=== PATIENT | female | born 1995 | race Caucasian/White ===

== ENCOUNTER 2018-12-02 19:35 | Outpatient (CLI) | payer OTHER, SELFPAY ==
[~2018-12-02] VITALS: Ht 167.6 cm; Wt 75.3 kg
--- NOTE | 2018-12-02 21:05 | IPNPDOC ---
Text Note Date of Service The patient was seen on 12/02/18. NOTE 23 yo at 38+6 weeks gestation presents to L&D with the complaint of contractions that have been worsening throughout the day. She describes them as occurring every 7-15 minutes. She denies any vaginal bleeding or leakage of fluid. She endorses excellent movement. Chaperoned by L&D RN Vitals - VSS, afebrile, normotensive, non tachycardic General - AAOX3, sitting up in bed, NAD Abdomen - Gravid uterus, no fundal tenderness Cervix - 1/50/-3, posterior FHT tracing - NST reactive with moderate variability, +accels, no decels. Ctx sporadic on toco. Patient not in active labor. status reassuring. She has an appointment scheduled for [id number]. Return to care sooner for any urgent concerns. All questions answered. DO ISIDRO Sylvester CHRISTOPHER J. DO Dec 02, 2018 21:05
== END 2018-12-02 21:15 | disposition home or self-care (01) ==
LOC: M LDO 19:35
PROVIDERS: ATTEND Obstetrics & Gynecology
DX: O26.893 Other specified pregnancy related conditions, third trimester (principal); R10.30 Lower abdominal pain, unspecified; O47.1 False labor at or after 37 completed weeks of gestation; Z3A.38 38 weeks gestation of pregnancy
CPT/HCPCS: 59025; G0378; G0463

== ENCOUNTER 2018-12-03 10:26 | Inpatient (IN) | payer OTHER, SELFPAY ==
[2018-12-03] VITALS (14 sets, daily range): BP systolic 105–136; BP diastolic 64–86
[~2018-12-03] VITALS: Ht 167.6 cm; Wt 75.4 kg
[2018-12-03] MEDS ORDERED: PENICILLIN G POTASSIUM IV 5 MU in D5W MINI-BAG PLUS 100 ML IV STA (13:59)
[2018-12-03] MEDS ORDERED: LACTATED RINGER'S 1000 ML IV ONE (14:00)
[2018-12-03 14:48] LABS: HEMATOCRIT 35.3 % (36.0-47.0); HEMOGLOBIN 11.9 g/dl (12.0-15.5); MEAN CORPUSCULAR HEMOGLOBIN 34.2 pg (27.0-33.0); MEAN CORPUSCULAR HGB CONC 33.7 g/dl (32.0-36.5); MEAN CORPUSCULAR VOLUME 101.4 fl (80.0-96.0); PLATELET COUNT, AUTOMATED 170 10^3/uL (150-450); RED BLOOD COUNT 3.48 10^6/uL (4.00-5.40); WHITE BLOOD COUNT 8.8 10^3/uL (4.0-10.0)
[2018-12-03] MEDS: LR 1,000 ML IV SCH ×2 (14:56→18:25)
[2018-12-03] MEDS ORDERED: FENTANYL 2MCG/ML ROPIVACAINE 0.2% IN 0.9% NACL 100ML IVBAG As Ordered ONE (17:14)
--- NOTE | 2018-12-03 17:44 | HPE ---
DATE OF ADMISSION: 12/03/2018 This lady is a 23-year-old 1, para 0. Last menstrual period (LMP) is 02/24/2018, estimated date of confinement (EDC) 12/10/2018 at 39+ weeks of gestation. Contractions for the last 12 hours. No vaginal loss or bleeding. Risk factors are she is GBS positive, Rh negative, HSV oral positive, anemia, STD test of cure was negative, and abnormal Pap smear. Labs are O negative, HIV negative, hepatitis negative, RPR negative, rubella immune, Varicella immune. Pap shows low-grade squamous intraepithelial lesion (LGSIL). Urine was positive. Gonorrhea was negative. Chlamydia was positive. Test of cure was negative. One-hour glucose was elevated to 143. A 3-hour GTT 72/95/100/105. GBS is positive. She appears to be uncomfortable. Symphysis fundus height is 39, vertex, 100 percent effaced -3 station, 3-4 cm, bulging membranes. Blood pressure 108/66, respirations are 16, pulse of 90, temperature 98.6. Urine is 1005, pH 6. Te rest is negative. She has a category 1 strip. Normocephalic, atraumatic. Neck: Full range of motions. Pupils equal and reactive to light. Distal pulses symmetric. No evidence of deep vein thrombosis (DVT), pulmonary embolism (PE), or superficial pulled phlebitis. Chest is clear bilaterally to bases. No wheezes or rhonchi. Abdomen soft, 4-quadrant bowel sounds. Symphysis fundus height is appropriate. She has no rashes, lesions, or pruritus. She does have tattoos. No arthralgia, myalgia, complaint of joint pain. No complaint cough, wheezes, shortness of breath, or dyspnea on exertion. Not bleeding. Neurologic complete. No frequency. No nausea, vomiting, diarrhea, or constipation. No diabetic care. Her 3-hour GTT was normal. GYNECOLOGIC HISTORY: She has had a past history of chlamydia positive, test of cure negative. HSV oral was positive, and her Pap smear showed LGSIL. PAST MEDICAL AND SURGICAL: Unremarkable. FAMILY HISTORY: Noncontributory. SOCIAL HISTORY: She does not smoke, drink, abuse drugs. She is . No domestic violence. [employer]-duty soldier. We discussed the consent for vaginal delivery, which is delivery through the vagina with possible assist of forceps or vacuum devices if needed for maternal or indications, forceps, vacuums, or devices that can assist with vaginal delivery when normal pushing efforts cannot achieve delivery on their own or when delivery is needed in emergency for baby's wellbeing. Medications may be required to induce or augment labor in order to achieve vaginal delivery, and episiotomy may be required to help baby deliver vaginally. You may also require repair of any lacerations or tears of the vagina or vulva that are caused by delivery. In some cases emergencies can arise that require emergency delivery so quickly that there may not be enough time to stop and complete consent forms for the section. If this occurs, the provider will discuss the reason for the section before proceeding for surgery. section is delivery through the incision on your abdomen. In some situations section may be safer to the mother baby than continuing on when clinically indicated. Also vaginal delivery includes, but not limited to, bleeding, infections, injury to the vagina, pelvic structures, injury to the baby, damage to the uterus, reaction to anesthesia, uterine rupture, risk of hysterectomy for life-threatening bleeding, or even . Medications used to induce or augment labor may increase risk of infection, uterine tachysystole, uterine rupture, heart rate abnormalities, need for emergency delivery, and possible hysterectomy and hemorrhage. Additional risks with use of forceps or vacuum include perineal vaginal lacerations, risk of urinary or bowel incontinence, risk of baby being bruise, scratches, hematomas, intracranial bleed. The patient expressed understanding of all these issues. The plan of care discussed was to do antibiotic coverage for GBS positive, epidural as needed for pain management, artificial rupture of membranes (AROM) at the appropriate interval. The patient and has expressed understanding, and we are safe to proceed.
[2018-12-03] MEDS ORDERED: EPIDURAL COMMENT XX SCH (18:15)
[2018-12-03] MEDS ORDERED: ePHEDrine SULFATE 25 MG/5 ML(5MG/ML) SYRINGE IV PRN (18:15)
[2018-12-03] MEDS ORDERED: NALOXONE INJ 0.4 MG/1 ML VIAL (J2310) IV PRN (18:15)
[2018-12-03] MEDS ORDERED: REFRIGERATOR IV KEYS XX PRN (18:15)
[2018-12-03] MEDS ORDERED: diphenhydrAMINE INJ 50MG/ML VIAL (J1200) IV PRN (18:15)
[2018-12-03] MEDS ORDERED: ONDANSETRON 4MG/2ML VIAL (J2405) IV PRN (18:15)
[2018-12-03] MEDS ORDERED: FENTANYL/ROPIVACAINE/NACL BAG 100 ML EPIDURAL SCH (18:15)
[2018-12-03] MEDS ORDERED: EPIDURAL/PCA KEYS XX PRN (18:15)
[2018-12-03] MEDS ORDERED: LACTATED RINGER'S 1000 ML IV PRN (18:15)
[2018-12-03] MEDS ORDERED: PENICILLIN G POTASSIUM IV 2.5 MU in APPROPRIATE DILUENT 1 EA IV SCH (19:00)
[2018-12-03] MEDS ORDERED: OXYTOCIN 30 UNITS IN 0.9% NaCl 500ML IV BAG (J2590) As Ordered ONE (21:56)
[2018-12-03] MEDS ORDERED: OXYTOCIN DRIP 30 UNITS in APPROPRIATE DILUENT 1 EA IV SCH ×2 (22:45→23:58)
[2018-12-04] MEDS ORDERED: RHOGAM 300 MCG (1500 IU) INJ (J2790) IM SCH
[2018-12-04] MEDS ORDERED: ACETAMINOPHEN TAB 650MG DOSE (2X325MG) PO PRN
[2018-12-04] MEDS ORDERED: IBUPROFEN 600 MG TAB PO PRN
[2018-12-04] MEDS ORDERED: METHYLERGONOVINE MALEATE 0.2 MG TAB PO PRN
[2018-12-04] MEDS ORDERED: ACETAMINOPHEN 500 MG TAB PO PRN
[2018-12-04] MEDS ORDERED: DIBUCAINE 1% OINTMENT 30GM TOP PRN
[2018-12-04] MEDS ORDERED: MEASLES,MUMPS,RUBELLA VACCINE INJ (MMR-II) (90707) SC SCH
[2018-12-04] MEDS ORDERED: ANUSOL HC CREAM 30GM TOP PRN
[2018-12-04 00:14] LABS: CORD GAS ABE A -4.7; CORD GAS HCO3 A 23.6 MEQ/L; CORD GAS O2 SAT A 47.3 %; CORD GAS PCO2 A 56.4 mmHg; CORD GAS PH A 7.239 UNITS; CORD GAS PO2 A 22.8 mmHg; CORD GAS SBC A 19.5 MEQ/L; CORD GAS TCO2 A 25.3 MEQ/L
[2018-12-04 00:17] LABS: CORD GAS HCO3 V 22.9 MEQ/L; CORD GAS O2 SAT V 69.4 %; CORD GAS PCO2 V 48.1 mmHg; CORD GAS PH V 7.295 UNITS; CORD GAS PO2 V 30.3 mmHg; CORD GAS SBC V 20.5 MEQ/L; CORD GAS TCO2 V 24.3 MEQ/L
[2018-12-04 02:20] VITALS: BP 119/72
[2018-12-04 06:00] VITALS: BP 118/56
[2018-12-04] MEDS: PRENATAL VITAMINS CHEWABLE TABLET PO SCH (09:40)
[2018-12-04] MEDS: IBUPROFEN 800 MG TAB PO PRN ×2 (09:40→17:50)
[2018-12-04] MEDS: DOCUSATE SODIUM 100 MG CAP PO SCH ×2 (09:40→21:00)
--- NOTE | 2018-12-04 17:41 | DN ---
DATE: 12/04/2018 DELIVERY NOTE: Lashonda is a 23-year-old female, 1, para 0, who was admitted at 39 weeks gestation in labor. She does have positive group B Streptococcus (GBS). She received two doses of ampicillin. She progressed to fully dilated after an epidural and artificial rupture of membranes. She then pushed and delivered a live male infant in right occiput anterior position. scores 9 and 9. weight 8 pounds 1 ounce. Placenta delivered spontaneously intact. Three-vessel cord. Perineum, vagina and cervix inspected. Bilateral small vaginal wall laceration noted. No active bleeding. Estimated blood loss 300 mL. Both mother and baby in stable condition.
[2018-12-04 17:58] VITALS: BP 112/71
[2018-12-05 05:30] VITALS: BP 118/73
[2018-12-05] MEDS: IBUPROFEN 800 MG TAB PO PRN (05:42)
[2018-12-05] MEDS: DOCUSATE SODIUM 100 MG CAP PO SCH (08:38)
[2018-12-05] MEDS: PRENATAL VITAMINS CHEWABLE TABLET PO SCH (08:38)
--- NOTE | 2018-12-05 17:52 | IPN ---
DATE: 12/04/2018 This patient requested circumcision of her male . After discussing risks, benefits of circumcision, medical and nonmedical indications, penile block, and aftercare, expressed understanding of penile block and aftercare, signed the consent form. All questions were answered. A 20-minute discussion. We await the clearance by the data developer.
== END 2018-12-05 10:25 | disposition home or self-care (01) | DRG 807 ==
LOC: M LDO 10:26 → M LDI 13:50 → OBSVTOIN 13:59 → M OBS 12-04 01:57
PROVIDERS: ADMIT Obstetrics & Gynecology; ATTEND Obstetrics & Gynecology
PROC: 10907ZC Drainage of Amniotic Fluid, Therapeutic from Products of Conception, Via Natural or Artificial Opening (ICD-10-PCS; principal; 2018-12-04)
PROC: 10E0XZZ Delivery of Products of Conception, External Approach (ICD-10-PCS; 2018-12-04)
DX: O99.824 Streptococcus B carrier state complicating childbirth (principal); Z37.0 Single live birth; Z3A.39 39 weeks gestation of pregnancy; O70.0 First degree perineal laceration during delivery

== ENCOUNTER → 2019-05-03 | Outpatient (CLI) | payer OTHER ==
--- NOTE | 2019-05-03 10:59 | REP ---
CT paranasal sinuses: 05/03/2019. Indication: Sinusitis. Comparison: None. Technique: Unenhanced axial images of the paranasal sinuses were performed with coronal reconstructions provided. Findings: There are no air-fluid levels or frothy secretions. No significant periosteal mucosal thickening is present. Minimal leftward deviation of the nasal septum is noted. Contra bullosa of the middle nasal turbinate is is noted. The mastoid air cells are clear. No significant ocular, intraorbital or intracranial abnormalities are detected. The sinonasal passageways are patent. Impression: No significant paranasal sinus mucosal disease by CT evaluation. Electronically Signed by Jonathon Valdes DO 05/03/2019 10:50 A
== END ==
LOC: M RAD 08:36
PROVIDERS: ATTEND Otolaryngology
DX: J01.20 Acute ethmoidal sinusitis, unspecified (principal)

== ENCOUNTER 2019-09-12 23:38 | Emergency (ER) | payer OTHER ==
[~2019-09-12] VITALS: Ht 182.9 cm; Wt 54.5 kg
[2019-09-12 23:48] VITALS: BP 122/65
[2019-09-13] MEDS ORDERED: NS 1,000 ML IV ONE (00:30)
[2019-09-13] MEDS ORDERED: KETOROLAC 30 MG/ML 1ML VIAL IV ONE (00:30)
[2019-09-13 00:31] LABS: BASO % 0.4 % (0.0-1.0); EOS % 0.7 % (0.0-3.0); HEMATOCRIT 35.8 % (36.0-47.0); HEMOGLOBIN 12.1 g/dl (12.0-15.5); LYMPH # 1.5 10^3/uL (1.5-5.0); LYMPH % 25.8 % (24.0-44.0); MEAN CORPUSCULAR HGB CONC 33.8 g/dl (32.0-36.5); MEAN CORPUSCULAR VOLUME 94.7 fl (80.0-96.0); MONO # 0.3 10^3/uL (0.0-0.8); MONO % 5.3 % (0.0-5.0); NEUTROPHILS # 3.8 10^3/uL (1.5-8.5); NEUTROPHILS % 67.6 % (36.0-66.0); PLATELET COUNT, AUTOMATED 167 10^3/uL (150-450); RED BLOOD COUNT 3.78 10^6/uL (4.00-5.40); WHITE BLOOD COUNT 5.6 10^3/uL (4.0-10.0)
--- NOTE | 2019-09-13 01:39 | REPVR ---
PROCEDURE INFORMATION: Exam: US Pelvis Complete, Transabdominal and US Pelvis, Transvaginal Exam date and time: 09/13/2019 1:21 AM Age: 24 years old Clinical indication: Pelvic pain; Additional info: Pelvic pain post intercourse TECHNIQUE: Imaging protocol: Real-time transabdominal and transvaginal pelvic ultrasound (complete) with image documentation. Transvaginal imaging was used for better evaluation of the endometrium and adnexa. COMPARISON: No relevant prior studies available. FINDINGS: Uterus/cervix: The uterus measures 10.5 cm in its cephalocaudad dimension and 4.9 x 7.0 cm in its AP and lateral dimensions transabdominal. The uterus measures 10.1 cm in its cephalocaudad dimension and 5.1 x 6.4 cm in its AP and lateral dimensions transvaginal. The endometrium measures 7 mm transabdominal and 10 mm transvaginal. Right adnexa: The right ovary measures 5.0 x 4.7 x 2.9 cm with an irregular cystic area, probably an involuting cyst measuring 3.3 x 3.1 x 1.9 cm. There is normal right ovarian arterial and venous blood flow. Left adnexa: The left ovary measures 2.3 x 3.5 x 2.3 cm and demonstrates normal arterial and venous blood flow. Free fluid: None. Bladder: Normal. IMPRESSION: 1. Involuting right ovarian cyst measuring 3.3 x 3.1 x 1.9 cm. 2. Otherwise negative pelvic sonogram. Electronically signed by: Nahum Sifuentes On 09/13/2019 01:39:12 AM
[2019-09-13] MEDS ORDERED: FLAG500T PO (01:47)
[2019-09-13 02:00] LABS: BILIRUBIN, URINE MANUAL NEGATIVE (NEGATIVE); GLUCOSE, URINE (UA) MANUAL NEGATIVE (NEGATIVE); KETONE, URINE MANUAL NEGATIVE (NEGATIVE); UROBILINOGEN, URINE MANUAL NORMAL (NORMAL)
[2019-09-13] MEDS ORDERED: metroNIDAZOLE (FLAGYL) 500 MG TAB PO ONE (02:00)
[2019-09-13 02:42] LABS: CHLAMYDIA DNA AMPLIFICATION NEGATIVE (NEGATIVE); GC DNA AMPLIFICATION NEGATIVE (NEGATIVE)
[2019-09-15] MEDS ORDERED: FLAG500T PO (15:57)
== END 2019-09-13 02:30 | disposition home or self-care (01) ==
LOC: EDBD 23:38 → M ED 23:38
DX: N83.201 Unspecified ovarian cyst, right side (principal); N76.0 Acute vaginitis; F17.200 Nicotine dependence, unspecified, uncomplicated
CPT/HCPCS: 76830; 76856; 80047; 84702; 85025; 87210; 87661; 93976; 96361; 96374; 99284; J1885

== ENCOUNTER 2020-01-21 16:58 | Emergency (ER) | payer OTHER ==
[~2020-01-21] VITALS: Ht 167.6 cm; Wt 55.0 kg
[~2020-01-21 16:58] MED LIST: FLAG500T PO
[2020-01-21] MEDS ORDERED: BENZ200C70 PO (18:32)
[2020-01-21] MEDS ORDERED: AMOX500C PO (18:32)
[2020-01-21 19:13] VITALS: BP 106/70
[2020-01-21 19:20] LABS: BASO % 0.3 % (0.0-1.0); EOS # 0.1 10^3/uL (0.0-0.5); EOS % 0.8 % (0.0-3.0); HEMOGLOBIN 14.3 g/dl (12.0-15.5); LYMPH # 1.4 10^3/uL (1.5-5.0); LYMPH % 21.3 % (24.0-44.0); MEAN CORPUSCULAR HEMOGLOBIN 31.7 pg (27.0-33.0); MEAN CORPUSCULAR HGB CONC 32.5 g/dl (32.0-36.5); MEAN CORPUSCULAR VOLUME 97.6 fl (80.0-96.0); MONO # 0.5 10^3/uL (0.0-0.8); MONO % 6.9 % (0.0-5.0); NEUTROPHILS # 4.6 10^3/uL (1.5-8.5); NEUTROPHILS % 70.4 % (36.0-66.0); PLATELET COUNT, AUTOMATED 220 10^3/uL (150-450); RED BLOOD COUNT 4.51 10^6/uL (4.00-5.40); WHITE BLOOD COUNT 6.5 10^3/uL (4.0-10.0)
[2020-01-21 19:34] LABS: MONO REFLEX EBV COMP NEGATIVE (NEGATIVE)
[2020-01-24 17:07] LABS: EBV VIRAL CAPSID AG IgG >600.0 U/mL (0.0-17.9); EBV VIRAL CAPSID AG IgM <36.0 U/mL (0.0-35.9)
[2020-02-28] MEDS ORDERED: DOXY-350 PO (07:37)
[2020-02-28] MEDS ORDERED: PERCOCET PO (07:38)
== END 2020-01-21 19:24 | disposition home or self-care (01) ==
LOC: M ED 16:58
DX: J02.0 Streptococcal pharyngitis (principal); Z20.89 Contact with and (suspected) exposure to other communicable diseases

== ENCOUNTER 2020-02-28 09:37 | Day surgery (SDC) | payer OTHER ==
[~2020-02-28] VITALS: Ht 167.6 cm; Wt 54.3 kg
[~2020-02-28 09:37] MED LIST changes: +AMOX500C PO; +BENZ200C70 PO; +DOXY-350 PO; +LIDOCAINE 2% 100MG/5ML SDV (FOR ANES.) As Ordered ONE; +LIDOCAINE W/EPINEPHRINE 1% 20ML VIAL As Ordered ONE; +LR 1,000 ML IV ONE; +METHYLENE BLUE 0.5% (5MG/ML) 10 ML AMP (PROVAYBLUE) As Ordered ONE; +MIDAZOLAM INJ 2MG/2ML VIAL (J2250 PER 1MG) As Ordered ONE; +OXYMETAZOLINE 0.05% NASAL SPRAY (AFRIN) As Ordered ONE; +PERCOCET PO; +ROCURONIUM BROMIDE 50 MG/5 ML VIAL As Ordered ONE; +fentaNYL 100 MCG/2 ML INJECTION (J3010) As Ordered ONE; +propofoL 200 MG/20 ML VIAL As Ordered ONE
[2020-02-28] MEDS ORDERED: dexameTHASONE 4 MG/ML 1ML VIAL (J1100 PER 1MG) As Ordered ONE (10:28)
[2020-02-28] MEDS ORDERED: METOCLOPRAMIDE INJ 10MG/2ML VIAL (J2765 PER 1) As Ordered ONE (10:34)
[2020-02-28] MEDS ORDERED: ACETAMINOPHEN 1000MG 100ML IV BTL (OFIRMEV) (J0131 PER 10MG) As Ordered ONE (10:34)
[2020-02-28] MEDS ORDERED: ONDANSETRON 4MG/2ML VIAL As Ordered ONE (10:34)
[2020-02-28] MEDS ORDERED: PHENYLephrine HCL 500 MCG/5 ML (100MCG/ML) SYRINGE (J2370) As Ordered ONE ×2 (10:42→11:06)
[2020-02-28] MEDS ORDERED: SODIUM CHLORIDE 0.9% NASAL GEL 15GM (AYR) As Ordered ONE (11:07)
[2020-02-28] MEDS ORDERED: fentaNYL 100 MCG/2 ML INJECTION (J3010) IV PRN (12:15)
[2020-02-28] MEDS ORDERED: ONDANSETRON 4MG/2ML VIAL IV PRN (12:15)
[2020-02-28] MEDS ORDERED: oxyCODONE 5MG TAB PO PRN (12:15)
[2020-02-28] MEDS ORDERED: LR 1,000 ML IV SCH (12:45)
[2020-02-28] MEDS ORDERED: PERCOCET 5MG/325MG TAB PO PRN (13:00)
[2020-02-28] MEDS ORDERED: IBUPROFEN 800 MG TAB PO PRN (13:00)
[2020-02-28 14:05] VITALS: BP 102/55
== END 2020-02-28 16:20 | disposition home or self-care (01) ==
LOC: M SDC 09:37
PROVIDERS: ATTEND Specialist
DX: J34.2 Deviated nasal septum (principal); J32.0 Chronic maxillary sinusitis; G43.909 Migraine, unspecified, not intractable, without status migrainosus; F17.218 Nicotine dependence, cigarettes, with other nicotine-induced disorders
CPT/HCPCS: 30140; 30520; 31267; 81025; 88300; 88305; J0131; J1100; J2250; J2370; J2405; J2765; J3010; Q9968; U0002

== ENCOUNTER → 2020-05-30 | Outpatient (REF) | payer OTHER ==
[~2020-05-30] MED LIST changes: -LIDOCAINE 2% 100MG/5ML SDV (FOR ANES.) As Ordered ONE; -LIDOCAINE W/EPINEPHRINE 1% 20ML VIAL As Ordered ONE; -LR 1,000 ML IV ONE; -METHYLENE BLUE 0.5% (5MG/ML) 10 ML AMP (PROVAYBLUE) As Ordered ONE; -MIDAZOLAM INJ 2MG/2ML VIAL (J2250 PER 1MG) As Ordered ONE; -OXYMETAZOLINE 0.05% NASAL SPRAY (AFRIN) As Ordered ONE; -ROCURONIUM BROMIDE 50 MG/5 ML VIAL As Ordered ONE; -fentaNYL 100 MCG/2 ML INJECTION (J3010) As Ordered ONE; -propofoL 200 MG/20 ML VIAL As Ordered ONE
== END ==
LOC: M LAB REF 14:19
PROVIDERS: ATTEND Dermatology
DX: D49.2 Neoplasm of unspecified behavior of bone, soft tissue, and skin (principal); L72.0 Epidermal cyst

== ENCOUNTER → 2020-09-14 | Outpatient (REF) | payer OTHER ==
[2020-09-14 21:28] LABS: CHLAMYDIA DNA AMPLIFICATION NEGATIVE (NEGATIVE); GC DNA AMPLIFICATION NEGATIVE (NEGATIVE)
== END ==
LOC: M LAB REF 19:35
PROVIDERS: ATTEND Physician Assistant
DX: J02.9 Acute pharyngitis, unspecified (principal); R30.0 Dysuria